=== PATIENT | male | born 1980 | race Caucasian/White ===

== ENCOUNTER 2024-10-25 14:32 | Emergency (ER) | payer OTHER ==
[2024-10-25] MEDS: Lidocaine 1% 10 ML MDV ONE (16:40)
[2024-10-25] MEDS: Bupivacaine 0.5% 10 ML SDV ONE (16:40)
[2024-10-25] MEDS: Bupivacaine 0.5% 10 ML SDV INJECT ONE (16:48)
[2024-10-25] MEDS: cefTRIAXone 1 GM, Lidocaine 1% 2.1 ML IM ONE (16:48)
[2024-10-25] MEDS: Lidocaine 1% 10 ML MDV INJECT ONE (16:48)
== END 2024-10-25 16:58 | disposition home or self-care (01) ==
LOC: JD.ED 14:32
DX: S62.633B Displaced fracture of distal phalanx of left middle finger, initial encounter for open fracture (principal); I10 Essential (primary) hypertension; Z79.899 Other long term (current) drug therapy; W23.1XXA Caught, crushed, jammed, or pinched between stationary objects, initial encounter
CPT/HCPCS: 12002; 73140-26-F2; 73140-F2; 96372; 99283; J0665; J0696; J2003